=== PATIENT | male | born 1965 | race Caucasian/White ===

== ENCOUNTER 2022-07-15 14:28 | Emergency (ER) | payer BC ==
[~2022-07-15] VITALS: Ht 180.3 cm; Wt 152.0 kg
[2022-07-15] MEDS ORDERED: TOPROL XL25 MG PO (14:51)
[2022-07-15] MEDS ORDERED: ROSUVASTATIN CA20 MG PO (14:52)
[2022-07-15] MEDS ORDERED: CYMBALTA30 MG PO (14:53)
[2022-07-15] MEDS ORDERED: ASPIRIN CHEWABL81 MG PO (14:54)
[2022-07-15] MEDS ORDERED: TRAMADOL HCL50 MG PO (14:54)
[2022-07-15] MEDS ORDERED: ISOSORBIDE DINI10 M1 PO (14:55)
[2022-07-15] MEDS ORDERED: FISH OIL CONC1000 M2 PO (14:55)
[2022-07-15] MEDS ORDERED: MULTI-VITAMIN1 EACH PO (14:56)
[2022-07-15 15:05] LABS: BASO % 0.4 % (0.0-1.0); EOS # 0.2 10*3/uL (0.0-0.4); EOS % 2.5 % (1.0-4.0); HEMATOCRIT 45.1 % (42.0-52.0); LYMPH # 1.9 10*3/uL (1.3-4.4); LYMPH % 21.2 % (27.0-41.0); MEAN CELL VOLUME 91.1 fl (80.0-94.0); MEAN CORPUSCULAR HGB 30.7 pg (27.0-31.0); MEAN CORPUSCULAR HGB CONC 33.7 g/dl (33.0-37.0); MEAN PLATELET VOLUME 10.2 fl (9.6-12.3); MONO # 0.5 10*3/uL (0.1-1.0); MONO % 5.3 % (3.0-9.0); NEUT # 6.3 10*3/uL (2.3-7.9); NEUT % 70.3 % (47.0-73.0); PLATELET COUNT AUTOMATED 191 10*3/uL (130-400); RED BLOOD COUNT 4.95 10*6/uL (4.50-5.90); RED CELL DISTRI WIDTH 12.6 % (0-14.5); WHITE BLOOD COUNT 8.9 10*3/uL (4.8-10.8)
[2022-07-15] MEDS ORDERED: BENAZEPRIL20 MG PO (15:08)
[2022-07-15 15:22] LABS: ACT PARTIAL THROMBO TIME 25.5 SECONDS (20.0-32.1)
[2022-07-15 15:30] LABS: ALKALINE PHOSPHATASE 87 U/L (46-116); BUN 11 mg/dl (9-23); CHLORIDE 108 mmol/L (98-107); POTASSIUM 3.9 mmol/L (3.4-5.1); SGPT/ALT 35 U/L (10-49); TOTAL PROTEIN 7.2 gm/dL (6.0-8.0)
== END 2022-07-15 16:21 | disposition home or self-care (01) ==
LOC: ED 14:28
PROVIDERS: Emergency Medicine
DX: H53.8 Other visual disturbances (principal); R42 Dizziness and giddiness